=== PATIENT | male | born 1995 ===

== ENCOUNTER 2025-03-19 06:07 | Day surgery (SDC) | payer OTHER ==
[2025-03-18 10:10] VITALS: BP 118/75
[~2025-03-19] VITALS: Ht 175.3 cm; Wt 65.8 kg
[~2025-03-19 06:07] MED LIST: DESCOVY 200-251 EACH PO
[2025-03-19] MEDS ORDERED: CEFTRIAXONE SODIUM 2,000 MG VIAL ONE (07:17)
[2025-03-19] MEDS ORDERED: METRONIDAZOLE/SODIUM CHLORIDE 500 MG/100 ML PIGGYBACK IV ONE (07:18)
[2025-03-19] MEDS ORDERED: TRIAMCINOLONE ACETONIDE 40 MG/ML VIAL ONE (09:51)
[2025-03-19] MEDS ORDERED: HEMOSTATIC MATRIX 1 KIT KIT TOP ONE (09:54)
[2025-03-19] MEDS ORDERED: POVIDONE-IODINE 118 ML BOTT TOP ONE (09:54)
[2025-03-19] MEDS ORDERED: BUPIVACAINE HCL/MPF 0.5% 30ML VIAL ONE (09:54)
[2025-03-19] MEDS ORDERED: DIBUCAINE 30 GM TUBE ONE (09:54)
[2025-03-19] MEDS ORDERED: LIDOCAINE HCL 1%/EPINEPHRINE 20ML VIAL IJ ONE (09:55)
== END 2025-03-19 13:55 | disposition home or self-care (01) ==
LOC: CIR.AMB 06:07
PROVIDERS: ATTEND Colon & Rectal Surgery
DX: K62.0 Anal polyp (principal); A63.0 Anogenital (venereal) warts